=== PATIENT | male | born 1980 | race Caucasian/White ===

== ENCOUNTER 2018-04-06 09:57 | Emergency (ER) | payer BC ==
[~2018-04-06] VITALS: Ht 188 cm; Wt 104.3 kg
[~2018-04-06 09:57] MED LIST: CLOM50TA PO
[2018-04-06] MEDS ORDERED: HYDR25SU7 RC (10:05)
--- NOTE | 2018-04-06 10:06 | NUR ---
Patient is resting comfortably on gurney while ocassionally using his personal electronic device, NAD.
--- NOTE | 2018-04-06 10:46 | NUR ---
Patient discharged to home in stable conditon with birsk steady gait. Written and verbal after care instructions given to patient. Patient verbalizes understanding of instructions. Work excuse was given per patient's request.
== END 2018-04-06 10:50 | disposition home or self-care (01) ==
LOC: ER 09:57
DX: K64.4 Residual hemorrhoidal skin tags (principal)
CPT/HCPCS: A4663